=== PATIENT | female | born 1990 | race Caucasian/White ===

== ENCOUNTER 2022-11-14 14:12 | Emergency (ER) | payer OTHER ==
[2022-11-14] MEDS ORDERED: ALBUTEROL SO4 2.5/IPRATROPIUM 0.5 INH SOL 3 ML VIAL.NEB. NEB ONE (14:33)
[2022-11-14 14:34] VITALS: BP 115/72; TEMP 98.4; BMI 24.5
[2022-11-14] MEDS ORDERED: DEXAMETHASONE LIQUID 0.5 MG/5 ML PO ONE (14:34)
[2022-11-14] MEDS ORDERED: DEXAMETHASONE SOD PHOSPHATE/PF 10 MG/ML SDV ONE (14:57)
[2022-11-14 15:59] VITALS: PULSE 101; RESP 20
== END 2022-11-14 16:20 | disposition home or self-care (01) ==
LOC: FER 14:12
PROC: 3E0F7GC Introduction of Other Therapeutic Substance into Respiratory Tract, Via Natural or Artificial Opening (ICD-10-PCS; principal; 2022-11-14)
DX: R06.02 Shortness of breath (principal); R05.9 Cough, unspecified; M79.10 Myalgia, unspecified site; R53.83 Other fatigue; J44.1 Chronic obstructive pulmonary disease with (acute) exacerbation
CPT/HCPCS: 71046-TC-FY; 99283-25